=== PATIENT | male | born 1975 ===

== ENCOUNTER 2020-02-28 09:54 | Outpatient (CLI) | payer OTHER | END 2020-02-28 09:55 | disposition home or self-care (01) | LOC: RAD 09:54 | DX: M54.2 Cervicalgia (principal); M54.6 Pain in thoracic spine ==

== ENCOUNTER 2020-07-23 07:42 | Inpatient (IN) | payer OTHER ==
[~2020-07-23] VITALS: Ht 165.1 cm; Wt 112.9 kg
[2020-07-23] MEDS ORDERED: TOPROL XL100 M1 (08:04)
[2020-07-23] MEDS ORDERED: HYZAAR 100-251 EACH (08:06)
[2020-07-23] MEDS ORDERED: PLAVIX75 MG (08:07)
[2020-07-23] MEDS ORDERED: HYDRALAZINE HCL50 MG PO (08:07)
[2020-07-23] MEDS ORDERED: GLIPIZIDE XL10 MG (08:08)
[2020-07-23] MEDS ORDERED: PRAVASTATIN SOD20 MG (08:08)
[2020-07-23] MEDS ORDERED: FORTAMET1000 MG (08:08)
[2020-07-23] MEDS ORDERED: AZOR 10-20 MG1 EACH (08:09)
[2020-07-23] MEDS ORDERED: ZOLOFT100 MG PO (09:06)
== END 2020-07-26 14:27 | disposition designated cancer center or children's hospital (05) | DRG 281 ==
LOC: ER 07:42 → MEDI 20:24
PROVIDERS: ADMIT Internal Medicine; ATTEND Internal Medicine
PROC: 4A033R1 Measurement of Arterial Saturation, Peripheral, Percutaneous Approach (ICD-10-PCS; 2020-07-23)
PROC: 4A12X4Z Monitoring of Cardiac Electrical Activity, External Approach (ICD-10-PCS; principal; 2020-07-24)
DX: I21.4 Non-ST elevation (NSTEMI) myocardial infarction (principal); Z68.41 Body mass index [BMI] 40.0-44.9, adult; I10 Essential (primary) hypertension; E11.42 Type 2 diabetes mellitus with diabetic polyneuropathy; I25.118 Atherosclerotic heart disease of native coronary artery with other forms of angina pectoris; E66.01 Morbid (severe) obesity due to excess calories; Z95.5 Presence of coronary angioplasty implant and graft; Z20.828 Contact with and (suspected) exposure to other viral communicable diseases